=== PATIENT | male | born 1975 | race Caucasian/White ===

== ENCOUNTER 2023-09-22 15:13 | Outpatient (OUT) | payer OTHER, SELFPAY ==
[2023-09-22 15:53] LABS: Basophils Percent Auto 0.5 % (0.2-2.0); Eosinophils Absolute Auto 0.2 10^3/uL (0.0-0.7); Eosinophils Percent Auto 3.8 % (0.9-7.0); Hematocrit 40.1 % (42.0-54.0); Hemoglobin 13.9 g/dL (14.0-18.0); Immature Granulocytes Abs Auto 0.01 10^3/uL (0.00-0.03); Immature Granulocytes Pct Auto 0.2 % (0.0-0.5); Lymphocytes Absolute Auto 2.4 10^3/uL (1.2-3.8); Lymphocytes Percent Auto 42.8 % (20.5-60.0); Mean Corpuscular HGB Conc 34.7 g/dL (29.9-35.2); Mean Corpuscular Hemoglobin 32.9 pg (25.9-34.0); Mean Platelet Volume 11.8 fL (9.5-13.5); Monocytes Absolute Auto 0.5 10^3/uL (0.3-0.8); Monocytes Percent Auto 9.1 % (1.7-12.0); Neutrophils Absolute Auto 2.4 10^3/uL (1.4-6.5); Neutrophils Percent Auto 43.6 % (43.0-75.0); Platelet Count 169 10^3/uL (150-450); Red Blood Count 4.22 10^6/uL (4.70-6.10); Red Cell Distribution Width 13.1 % (11.0-15.0); White Blood Count 5.6 10^3/uL (4.0-11.0)
[2023-09-22 15:59] LABS: Estimated Average Glucose 114 mg/dL; Glycohemoglobin A1C 5.6 % (4.5-6.2)
[2023-09-22 16:16] LABS: Alanine Aminotransferase 55 U/L (16-63); Albumin Level 3.7 g/dL (3.4-5.0); Alkaline Phosphatase 46 U/L (46-116); Aspartate Amino Transferase 31 U/L (15-37); BUN Creatinine Ratio 18.1; Bilirubin Total 0.5 mg/dL (0.2-1.0); Carbon Dioxide 29.9 mmol/L (21.0-32.0); Chloride 101 mmol/L (98-107); Chol HDL Ratio 6.4; Cholesterol 223 mg/dL (<=200); Estimated GFR (African America >60 (>=60); Estimated GFR (Non-African Ame >60 (>=60); Free T3 2.32 pg/mL (2.18-3.98); Globulin 3.7 g/dL; Glucose 105 mg/dL (74-106); HDL Cholesterol 35 mg/dL (40-60); Potassium 3.9 mmol/L (3.5-5.1); Sodium 140 mmol/L (136-145); Thyroid Stimulating Hormone 12.199 uIU/mL (0.358-3.740); Total Protein 7.4 g/dL (6.4-8.2); Triglycerides 535 mg/dL (<=150); Uric Acid 6.5 mg/dL (3.5-7.2)
[2023-09-22 16:19] LABS: LDL Cholesterol Direct 116 mg/dL
[2023-09-24 10:11] LABS: Insulin 93.2 uIU/mL (2.6-24.9)
== END 2023-09-22 15:14 | disposition home or self-care (01) ==
PROVIDERS: PCP Family Medicine; Visit Provider Family Medicine
DX: E78.5 Hyperlipidemia, unspecified (principal); R73.09 Other abnormal glucose; Z12.5 Encounter for screening for malignant neoplasm of prostate; Z12.12 Encounter for screening for malignant neoplasm of rectum
CPT/HCPCS: 36415; 80053; 80061; 83036; 83525; 83721; 84436; 84443; 84481; 84550; 85025; G0103

== ENCOUNTER 2024-10-09 10:32 | Outpatient (OUT) | payer OTHER, SELFPAY ==
--- OUTSIDE RECORDS SUMMARY | 2024-10-09 10:50 | XMS_ITS | CCD ---
Author Organization [facility] Care Team Providers Care Dual Rate Supervisor Name Role Phone LEDY LAN Primary Care Unavailable SELF, REFERRED Referring Unavailable EBRAHEIM, LANDON Admitting Unavailable EBHEIMSHRADDHAIL Attending Unavailable MATTHEW, DR VILLAFANA Attending Unavailable MATTHEW, DR VILLAFANA Primary Care Unavailable MATTHEW, DR VILLAFANA Admitting Unavailable MATTHEW, DR VILLAFANA Admitting Unavailable MATTHEW, DR VILLAFANA Attending Unavailable MATTHEW, DR VILLAFANA Consulting Unavailable MATTHEW, DR VILLAFANA Primary Care Unavailable Problems Problem Classification Problem Date Documented Da te Episodic/Chronic Diabetes mellitus without complication (1 source) Other abnormal glucose; Translations: [OTHER ABNORMAL GLUCOSE] Onset: 09-07-2022 Episodic Disorders of lipid metabolism (1 source) Hyperlipidemia, unspecified; Translations: [HYPERLIPIDEMIA UNSPECIFIED] Onset: 09-07-2022 Chronic Essential hypertension (1 source) Essential (primary) hypertension; Translations: [ESSENTIAL PRIMARY HYPERTENSION] Onset: 09-07-2022 Chronic Malaise and fatigue (1 source) Other fatigue; Translations: [OTHER FATIGUE] Onset: 09-07-2022 Episodic Other screening for suspected conditions (not mental disorders or infectious disease) (2 sources) Encounter for screening for malignant neoplasm of prostate; Translations: [Encounter for screening for malignant neoplasm of rectum] Onset: 09-07-2022 Episodic Results Test Name Value Interpretation Reference Range Facility CBC AUTO DIFFon 09-03-2022 BASO # 0.0 103/ul Normal 0.0-0.1 [facility] Comment on above: Performed By: #### C BC #### [facility] [address] [place], [place] [address] Dr. July Carmona Basophils/100 WBC (Bld) 0.4 % Normal 0.2-2.0 [facility] Comment on above: Performed By: #### C BC #### [facility] [address] [place] [address] Dr. July Carmona EO # 0.3 103/ul Normal 0.0-0.7 [facility] Comment on above: Performed By: #### C BC #### [facility] [address] [place] [address] Dr. July Carmona Eosinophils/100 WBC (Bld) 4.4 % Normal 0.9-7.0 [facility] Comment on above: Performed By: #### C BC #### [facility] [address] [place] [address] Dr. July Carmona Erythrocyte distribution width (RBC) [Ratio] 12.8 % Normal 11.0-15.0 [facility] Comment on above: Performed By: #### C BC #### [facility] [address] [place] [address] Dr. July Carmona Hematocrit (Bld) [Volume fraction] 44.0 % Normal 42.0-54.0 [facility] Comment on above: Performed By: #### C BC #### [facility] [address] [place] [address] Dr. July Carmona Hemoglobin (Bld) [Mass/Vol] 15.8 g/dL Normal 14.0-18.0 [facility] Comment on above: Performed By: #### C BC #### [facility] [address] [place] [address] Dr. July Carmona IG # 0.01 10e3/ul Normal 0.00-0.03 [facility] Comment on above: Performed By: #### C BC #### [facility] [address] [place] [address] Dr. July Carmona IG % 0.1 % Normal 0.0-0.5 [facility] Comment on above: Performed By: #### C BC #### [facility] [address] [place] [address] Dr. July Carmona LYMPH # 2.8 103/ul Normal 1.2-3.8 [facility] Comment on above: Performed By: #### C BC #### [facility] [address] [place] [address] Dr. July Carmona Lymphocytes/100 WBC (Bld) 40.5 % Normal 20.5-60.0 [facility] Comment on above: Performed By: #### C BC #### [facility] [address] [place] [address] Dr. July Carmona MANUAL DIFF REQ NO Normal [facility] Comment on above: Performed By: #### C BC #### [facility] [address] [place] [address] Dr. July Carmona MCH (RBC) [Entitic mass] 33.1 pg Normal 25.9-34.0 [facility] Comment on above: Performed By: #### C BC #### [facility] [address] [place] [address] Dr. July Carmona MCHC (RBC) [Mass/Vol] 35.9 g/dL Critically high 29.9-35.2 [facility] Comment on above: Performed By: #### C BC #### [facility] [address] [place] [address] Dr. July Carmona MCV (RBC) [Entitic vol] 92.2 fL Normal 80.0-94.0 [facility] Comment on above: Performed By: #### C BC #### [facility] [address] [place] [address] Dr. July Carmona MONO # 0.6 103/ul Normal 0.3-0.8 [facility] Comment on above: Performed By: #### C BC #### [facility] [address] [place] [address] Dr. July Carmona Monocytes/100 WBC (Bld) 8.6 % Normal 1.7-12.0 [facility] Comment on above: Performed By: #### C BC #### [facility] [address] [place] [address] Dr. July Carmona NEUT # 3.2 103/ul Normal 1.4-6.5 [facility] Comment on above: Performed By: #### C BC #### [facility] [address] [place] [address] Dr. July Carmona Neutrophils/100 WBC (Bld) 46.0 % Normal 43.0-75.0 [facility] Comment on above: Performed By: #### C BC #### [facility] [address] [place] [address] Dr. July Carmona Platelet mean volume (Bld) [Entitic vol] 11.2 fL Normal 9.5-13.5 [facility] Comment on above: Performed By: #### C BC #### [facility] [address] [place] [address] [address] July Carmona PLT 191 103/ul Normal 150-450 [facility] Comment on above: Performed By: #### C BC #### [facility] [address] [place] [address] Dr. July Carmona RBC 4.77 106/ul Normal 4.70-6.10 [facility] Comment on above: Performed By: #### C BC #### [facility] [address] [place] [address] Dr. July Carmona WBC 6.9 103/ul Normal 4.0-11.0 [facility] Comment on above: Performed By: #### C BC #### [facility] [address] [place] [address] Dr. July Carmona FREE T3on 09-03-2022 FREE T3 2.56 pg/mlL Normal 2.18-3.98 [facility] Comment on above: Performed By: #### L IPID, FT3, TSH, CMP, T4 #### [facility] [address] [place] [address] Dr. July Carmona GLYCOHEMOGLOBIN A1Con 2022 ADA RECOMMENDATION SEE BELOW Normal [facility] Comment on above: Result Comment: ADA RECOMMENDED LIMIT 4.0 - 6.0 ADA THERAPEUTIC TARGET < 7.0 ACTION SUGGESTED > 7.0 Performed By: #### A 1C #### [facility] [address] [place] [address] Dr. July Carmona Glucose [Mass/Vol] 108 mg/dL Normal [facility] Comment on above: Performed By: #### A 1C #### [facility] [address] [address] [address] July Carmona HbA1c (Bld) [Mass fraction] 5.4 % Normal 4.5-6.2 [facility] Comment on above: Performed By: #### A 1C #### [facility] [address] [place] [address] [address] July Carmona LIPID PROFILEon 09-03-2022 CHOL-HDL RATIO NORM SEE BELOW Normal [facility] Comment on above: Result Comment: 3.3 - 4.4 LOW RISK 4.4 - 7.1 AVERAGE RISK 7.1 - 11.0 MODERATE RISK >11.0 HIGH RISK Performed By: #### L IPID, FT3, TSH, CMP, T4 #### [facility] [address] [place] [address] [address] July Carmona Cholesterol [Mass/Vol] 204 mg/dL Critically high <=200 [facility] Comment on above: Performed By: #### L IPID, FT3, TSH, CMP, T4 #### [facility] [address] [address] [address] July Carmona Cholesterol in HDL [Mass/Vol] 38 mg/dL Critically low 40-60 [facility] Comment on above: Performed By: #### L IPID, FT3, TSH, CMP, T4 #### [facility] [address] [address] [address] July Carmona Cholesterol in LDL [Mass/Vol] 123.8 mg/dL Normal [facility] Comment on above: Performed By: #### L IPID, FT3, TSH, CMP, T4 #### [facility] [address] [place] [address] [address] July Carmona Cholesterol.total/Cho lesterol in HDL [Mass ratio] 5.4 {ratio} Normal [facility] Comment on above: Performed By: #### L IPID, FT3, TSH, CMP, T4 #### [facility] [address] [address] [address] July Carmona HDL NORMAL > or = 60 mg/dl - LOW CARDIOVASCULAR RISK <40 mg/dl - HIGH CARDIOVASCULAR RISK Normal [facility] Comment on above: Performed By: #### L IPID, FT3, TSH, CMP, T4 #### [facility] [address] [address] [address] July Carmona LDL CALC NORMAL SEE BELOW Normal [facility] Comment on above: Result Comment: <100 mg/dl OPTIMAL 100 - 129 mg/dl NEAR OR ABOVE OPTIMAL 130 - 159 mg/dl BORDERLINE HIGH 160 - 189 mg/dl HIGH >190 mg/dl VERY HIGH Performed By: #### L IPID, FT3, TSH, CMP, T4 #### [facility] [address] [place] [address] Dr. July Carmona Triglyceride [Mass/Vol] 211 mg/dL Critically high <=150 [facility] Comment on above: Performed By: #### L IPID, FT3, TSH, CMP, T4 #### [facility] [address] [place] [address] Dr. July Carmona VLDL CALC 42.2 mg/dL Normal [facility] Comment on above: Performed By: #### L IPID, FT3, TSH, CMP, T4 #### [facility] [address] [place] [address] Dr. July Carmona PROF 14(COMP METB)on 023 Albumin [Mass/Vol] 4.3 g/dL Normal 3.4-5.0 [facility] Comment on above: Performed By: #### L IPID, FT3, TSH, CMP, T4 #### [facility] [address] [place] [address] Dr. July Carmona Albumin/Globulin [Mass ratio] 1.2 {ratio} Normal [facility] Comment on above: Performed By: #### L IPID, FT3, TSH, CMP, T4 #### [facility] [address] [place] [address] Dr. July Carmona ALP [Catalytic activity/Vol] 43 U/L Critically low 46-116 [facility] Comment on above: Performed By: #### L IPID, FT3, TSH, CMP, T4 #### [facility] [address] [place] [address] Dr. July Carmona ALT [Catalytic activity/Vol] 76 U/L Critically high 16-63 [facility] Comment on above: Performed By: #### L IPID, FT3, TSH, CMP, T4 #### [facility] [address] [address] [address] July Carmona Anion gap [Moles/Vol] 11.9 mmol/L Normal [facility] Comment on above: Performed By: #### L IPID, FT3, TSH, CMP, T4 #### [facility] [address] [address] [address] July Carmona AST [Catalytic activity/Vol] 44 U/L Critically high 15-37 [facility] Comment on above: Performed By: #### L IPID, FT3, TSH, CMP, T4 #### [facility] [address] [place] [address] Dr. July Carmona Bilirubin [Mass/Vol] 0.8 mg/dL Normal 0.2-1.0 [facility] Comment on above: Performed By: #### L IPID, FT3, TSH, CMP, T4 #### [facility] [address] [address] [address] July Carmona Calcium [Mass/Vol] 9.5 mg/dL Normal 8.5-10.1 [facility] Comment on above: Performed By: #### L IPID, FT3, TSH, CMP, T4 #### [facility] [address] [address] [address] July Carmona Chloride [Moles/Vol] 103 mmol/L Normal 98-107 [facility] Comment on above: Performed By: #### L IPID, FT3, TSH, CMP, T4 #### [facility] [address] [address] [address] July Carmona CO2 [Moles/Vol] 29.3 mmol/L Normal 21.0-32.0 [facility] Comment on above: Performed By: #### L IPID, FT3, TSH, CMP, T4 #### [facility] [address] [address] [address] July Carmona Creatinine [Mass/Vol] 1.09 mg/dL Normal 0.70-1.30 [facility] Comment on above: Performed By: #### L IPID, FT3, TSH, CMP, T4 #### [facility] [address] [place] [address] [address] July Carmona EGFR-AF [facility] LUCIAN >60 Normal >=60 [facility] Comment on above: Performed By: #### L IPID, FT3, TSH, CMP, T4 #### [facility] [address] [place] [address] [address] July Carmona EGFR-NON AF [facility] LUCIAN >60 Normal >=60 [facility] Comment on above: Performed By: #### L IPID, FT3, TSH, CMP, T4 #### [facility] [address] [place] [address] Dr. July Carmona Globulin (S) [Mass/Vol] 3.5 g/dL Normal [facility] Comment on above: Performed By: #### L IPID, FT3, TSH, CMP, T4 #### [facility] [address] [place] [address] Dr. July Carmona Glucose [Mass/Vol] 95 mg/dL Normal 74-106 [facility] Comment on above: Performed By: #### L IPID, FT3, TSH, CMP, T4 #### [facility] [address] [place] [address] Dr. July Carmona Potassium [Moles/Vol] 4.2 mmol/L Normal 3.5-5.1 [facility] Comment on above: Performed By: #### L IPID, FT3, TSH, CMP, T4 #### [facility] [address] [place] [address] Dr. July Carmona Protein [Mass/Vol] 7.8 g/dL Normal 6.4-8.2 [facility] Comment on above: Performed By: #### L IPID, FT3, TSH, CMP, T4 #### [facility] [address] [place] [address] [address] July Carmona Sodium [Moles/Vol] 140 mmol/L Normal 136-145 [facility] Comment on above: Performed By: #### L IPID, FT3, TSH, CMP, T4 #### [facility] [address] [place] [address] [address] July Carmona Urea nitrogen [Mass/Vol] 16.0 mg/dL Normal 7.0-18.0 [facility] Comment on above: Performed By: #### L IPID, FT3, TSH, CMP, T4 #### [facility] [address] [place] [address] [address] July Carmona Urea nitrogen/Creatinine [Mass ratio] 14.7 mg/mg Normal [facility] Comment on above: Performed By: #### L IPID, FT3, TSH, CMP, T4 #### [facility] [address] [place] [address] Dr. July Carmona T4on 09-03-2022 T4 [Mass/Vol] 6.60 ug/dL Normal 4.50-12.10 [facility] Comment on above: Performed By: #### L IPID, FT3, TSH, CMP, T4 #### [facility] [address] [place] [address] [address] July Carmona TSHon 09-03-2022 TSH 5.741 uIU/mL Critically high 0.358-3.740 [facility] Comment on above: Performed By: #### L IPID, FT3, TSH, CMP, T4 #### [facility] [address] [place] [address] Dr. July Carmona Operative Reporton 2 Operative Report MR#: [id number] S [facility] Pt. Name: Jeremy Nunez Room #: 0C Discharge 01/30/2022 Date: Birthdate: 1975 OPERATIVE REPORT DATE OF SURGERY: 01/30/2022 SURGEON: Landon Rosa M.D. ASSISTANTS: 1. Payam Gardner MD. 2. Danis Tolentino MD. 3. Raciel Galloway MD. PREOPERATIVE DIAGNOSIS: Left distal biceps rupture. POSTOPERATIVE DIAGNOSIS: Left distal biceps rupture. PROCEDURE PERFORMED: Left distal biceps repair. ANESTHESIA: General. SPECIMENS: None. IMPLANTS: Arthrex suture button. ESTIMATED BLOOD LOSS: Minimal. INDICATIONS: This is a 46-year-old male presented to our orthopedic clinic with the above-mentioned injury. After discussion of the risks and benefits of fixation, he agreed to undergo the above-mentioned procedure. DESCRIPTION OF PROCEDURE: The patient was met in the preoperative holding area. Written consent was reviewed and the left upper extremity was marked by Dr. Rosa. He was then brought back to the operating room, placed under general anesthesia with his left arm outstretched on a hand table and then prepped and draped in the usual sterile fashion. A sterile tourniquet was applied to the upper arm and a preoperative time-out was performed using 2 separate patient identifiers. The left upper extremity was again confirmed by myself and Dr. Rosa, and preoperative antibiotics were administered. We began by making a transverse incision over the antecubital fossa and gently dissected down to the level of the biceps tendon, taking care to avoid and protect the brachial artery and median nerve. We were able to locate the avulsed end of the tendon easily and brought back down to the level of its insertion. We then carefully located the radial tuberosity using fluoroscopy and took care to protect the posterior interosseous nerve and the lateral antebrachial cutaneous nerve as well. Once satisfied with our insertion site, a drill was then used to create insertion site for tendon and the tendon was then whipstitched using Ethibond suture. This was then passed through a suture button, which was placed through our insertion hole and secured under fluoroscopy with the arm in supination. Once satisfied with our repair, the wound was then copiously irrigated with Betadine normal saline and fluoroscopy was again used to confirm that our button had flipped and was in appropriate position. We then closed the wound in a layered fashion. The patient was placed in a posterior slab splint and a sterile dressing was applied. He was then awakened from general anesthesia and brought to the PACU without complication. All counts were correct and Dr. Rosa was present for all critical portions of the case, made all decisions regarding the patient's care. Electronically Signed by: Landon Rosa M.D. 02/11/2022 10:45 A Landon Rosa M.D. I was present for the martínez and critical portions and I was otherwise immediately available to assist. Date Dict: 02/10/2022/10:32 A/Danis Tolentino MD Date Trans: 02/10/2022 11:16 A/wendi [id number] cc: Ledy Lan M.D. [address], [facility] [place] [address] [address] [facility] ELBOW LEFT 2 [facility] ELBOW LEFT 2 [facility] Department of Radiology [address] [place] [id number] Patient Name: JEREMY NUNEZ : 1975 Sex: M Age: Race: White Pt. Location: OUTP Patient Status: D Ordered Date: 01/30/2022 7:10:00 AM Completed Date: 01/30/2022 02:55 PM Requesting Provider: LANDON ROSA Attending Provider: LANDON ROSA Report Copy To: Signs & Symptoms: left distal biceps tendon repair History: Comments: left distal biceps tendon repair Exam: ELBOW LEFT 2 [facility] ELBOW LEFT 2 S 01/30/2022 2:55 PM CLINICAL INDICATIONS: left distal biceps tendon repair TECHNOLOGIST COMMENTS: Dr Rosa used 8 seconds of fluoro time for left distal biceps tendon repair juarez c-arm in 1355 out 1455 QUESTION FOR THE RADIOLOGIST: left distal biceps tendon repair PROTOCOL: AP(PA) and Lateral views were obtained. COMPARISON: None IMPRESSION: 1. Fluoroscopy was provided for the procedure intraoperatively. 2. A total of 8 seconds of fluoroscopy time was utilized. 3. A total of 4 views from fluoroscopy demonstrate stages of the procedure 4. Please refer to the procedural report. Electronically signed: Jeremy Obrien. Transcribed by: [email or web address], User Resident: Electronically Signed by: JEREMY OBRIEN @ 02/02/2022 04:20 PM Normal [facility] Comment on above: Order Comment: left distal biceps tendon repair POC GLUCOSE LABon 01-30-2022 Glucose [Mass/Vol] 95 mg/dL Normal 70-100 [facility] Comment on above: Performed By: #### [id number] #### [facility] [address] [id number] Provider Letteron 03-20-2021 Provider Letter March 20, 2021 March 20, 2021 JEREMY NUNEZ [address] [place] [address] JEREMY NUNEZ 1975 Dear Jeremy _ , We have been trying to reach you with no success. It is important that you return our call regarding your referral from Dr. Lan to Dr. Powers upon receiving this letter. Also, at the time of your call, please provide us with your current information. Thank you for your prompt attention to this matter. Sincerely, Fausto Powers MD General Surgery [phone] Normal [facility] Physician Referralon 021 Physician Referral [phone] [id number] Normal [facility] Encounters Encounter Date Encounter Type Care Provider Facility Start: 09-07-2022 Encounter for genera l adult medical examination without abnormal findings DR LEDY LAN [facility] Start: 09-03-2022 End: 09-04-[address] LEDY LAN Facility: Start: 09-03-2022 End: 09-04-2022 Encounter for general adult medical examination without abnormal findings DR LEDY LAN Facility:[facility] Start: 07-01-[address] LEDY LAN Facility :[facility] Start: 01-30-2022 End: 01-31-2022 ambulatory LEDY LAN Facility:[facility] Procedures Date Procedure Procedure Detail Performing Clinician Start: 09-03-[address] RAMO LAN Comment on above: Performed By: #### P SAD #### [facility] [address] [place] [address] [address] July Carmona Payers Date Payer Category Payer Unknown [id number] 1975 Unknown [id number] 1975 Unknown [id number] 1960 Self-pay [id number] 1960 Unknown [id number] Unknown [id number] Summary Purpose Family History No Family History Records FoundNo Family History Records FoundNo Family History Records Found Advance Directives No Advanced Directives Records FoundNo Advanced Directives Records FoundNo Advanced Directives Records Found Additional Source Comments (unrecognized sect ion and content) No Status Records FoundNo Status Records FoundNo Status Records Found INFORMATION SOURCE (unrecogn ized section and content) DATE CREATED AUTHOR 03/22/2021 [facility] DATE CREATED AUTHOR AUTHOR'S ORGANIZ ATION 02/12/2022 [facility] DATE CREATED AUTHOR AUTHOR'S ORGANIZ ATION 09/09/2022 [facility] FOR RECORDS PERTAINING TO PATIENTS WHO ARE OR HAVE BEEN ENROLLED IN A CHEMICAL DEPENDENCY/SUBSTANCEABUSE PROGRAM, SOME INFORMATION MAY BE OMITTED. This clinical summary was aggregated from multiple sources. Caution should be exercised in using it in the provision of clinical care. This summary normalizes information from multiple sources, and as a consequence, information in this document may materially change the coding, format and clinical context of patient data. In addition, data may be omitted in some cases. CLINICAL DECISIONS SHOULD BE BASED ON THE PRIMARY CLINICAL RECORDS. [employer] [facility] provides no warranty or guarantee of the accuracy or completeness of information in this document.
[2024-10-09 10:53] LABS: Basophils Percent Auto 0.2 % (0.2-2.0); Eosinophils Absolute Auto 0.2 10^3/uL (0.0-0.7); Eosinophils Percent Auto 4.5 % (0.9-7.0); Hematocrit 39.8 % (42.0-54.0); Lymphocytes Absolute Auto 1.8 10^3/uL (1.2-3.8); Lymphocytes Percent Auto 42.6 % (20.5-60.0); Mean Corpuscular HGB Conc 35.2 g/dL (29.9-35.2); Mean Corpuscular Hemoglobin 33.1 pg (25.9-34.0); Mean Corpuscular Volume 94.1 fL (80.0-94.0); Monocytes Absolute Auto 0.4 10^3/uL (0.3-0.8); Monocytes Percent Auto 8.5 % (1.7-12.0); Neutrophils Absolute Auto 1.9 10^3/uL (1.4-6.5); Neutrophils Percent Auto 44.2 % (43.0-75.0); Platelet Count 192 10^3/uL (150-450); Red Blood Count 4.23 10^6/uL (4.70-6.10); Red Cell Distribution Width 13.1 % (11.0-15.0); White Blood Count 4.3 10^3/uL (4.0-11.0)
[2024-10-09 11:52] LABS: Alanine Aminotransferase 37 U/L (16-63); Albumin Globulin Ratio 1.4; Alkaline Phosphatase 34 U/L (46-116); Anion Gap 12.1; Aspartate Amino Transferase 27 U/L (15-37); BUN Creatinine Ratio 13.9; Bilirubin Total 0.4 mg/dL (0.2-1.0); Calcium 9.3 mg/dL (8.5-10.1); Carbon Dioxide 29.3 mmol/L (21.0-32.0); Chloride 107 mmol/L (98-107); Chol HDL Ratio 3.6; Cholesterol 174 mg/dL (<=200); Estimated GFR (African America >60 (>=60 mL/min/1.73m^2); Estimated GFR (Non-African Ame >60 (>=60 mL/min/1.73m^2); Free T3 1.75 pg/mL (2.18-3.98); Globulin 2.9 g/dL; Glucose 101 mg/dL (74-106); HDL Cholesterol 48 mg/dL (40-60); LDL Cholesterol Calculated 109.6 mg/dL; Potassium 4.4 mmol/L (3.5-5.1); Sodium 144 mmol/L (136-145); Thyroid Stimulating Hormone 1.949 uIU/mL (0.358-3.740); Total Protein 6.9 g/dL (6.4-8.2); Triglycerides 82 mg/dL (<=150); VLDL CHOLESTEROL 16.4 mg/dL
[2024-10-09 12:06] LABS: Prostate Specific Antigen Scrn 0.38 ng/mL (<=4.00)
[2024-10-09 12:13] LABS: Estimated Average Glucose 117 mg/dL; Glycohemoglobin A1C 5.7 % (4.5-6.2)
== END 2024-10-09 10:33 | disposition home or self-care (01) ==
LOC: LAB 10:33
PROVIDERS: PCP Family Medicine; Visit Provider Family Medicine
DX: Z00.00 Encounter for general adult medical examination without abnormal findings (principal); E78.5 Hyperlipidemia, unspecified; R53.83 Other fatigue; R73.09 Other abnormal glucose; Z12.12 Encounter for screening for malignant neoplasm of rectum; E03.9 Hypothyroidism, unspecified; I10 Essential (primary) hypertension; Z12.5 Encounter for screening for malignant neoplasm of prostate
CPT/HCPCS: 36415; 80053; 80061; 83036; 84436; 84443; 84481; 85025; G0103